=== PATIENT | female | born 1980 | race Caucasian/White ===

== ENCOUNTER 2017-05-31 21:10 | Emergency (ER) | payer OTHER ==
[~2017-05-31] VITALS: Ht 160 cm; Wt 84.4 kg
--- NOTE | ~2017-05-31 | CR72 ---
[facility]. [facility] A Service of [facility] & [facility] RADIOLOGY TEXT RESULTS PATIENT: ALVARO WALSH LOCATION: SED : 78 UNIT #: [id number] AGE: [address]: Love Lopez SEX: F ORDER DR: [id number] [address] [address] [id number] E MR#: [id number] Acc #: [id number] NAME: ALVARO WALSH : 1980 SEX: F STUDY DATE/TIME: 05/31/2017 UNIT: SED ROOM: STUDY DESCRIPTION: CR Chest Single View Portable Attending Physician: Love Lopez Pa-C Ordering Physician: Physician Non-Staff Primary Care Physician: Shavon Dougherty M.D. MEDICAL IMAGING REPORT This report is preliminary unless electronic signature is present. EXAM Portable chest 05/31 at 22:03 INDICATIONS Productive cough and shortness of air for 1 week. COMPARISON. See 07/08/2015 FINDINGS A single AP portable view of the chest shows both lungs to be clear. The heart is normal in size. The mediastinal contour is normal. No significant bone abnormalities are seen. IMPRESSION Normal portable chest. Dictated by... Hamilton Zhou Jr., M.D. THIS IS AN ELECTRONICALLY VERIFIED REPORT Hamilton Zhou Jr., M.D. at 06/01/2017 9:09 PM ADELSO/dagoberto TD: 06/01/2017 09:51 JOB #: [id number] MEDICAL IMAGING REPORT Page 1 of 1
[~2017-05-31 21:10] MED LIST: ACETAMINOPHEN PO; ADVAIR 100-501 EACH IH; ALBUTEROL 0.5ML INH; ALBUTEROL0.83 MG/ML; ALBUTEROL1.25 MG/3 IH; ALBUTEROL17 G1 INH; ALBUTEROL17 GM; ALBUTEROL17 GM INH; ANTIBIOTIC PO; ATARAX PO; AUGMENTIN875 M1 PO; BACTRIM DS TABL1 TA1 PO; BENZONATATE PO; BUSPAR5 MG; DECADRON PO; DICLOFENAC PO; DOXYCYCLINE PO; FLEXERIL PO; FLEXERIL10 MG PO; GUAIFENESI1 TAB.SR . PO; IBUPROFEN PO; KLONOPIN PO; KLONOPIN0.5 M1; LITHIUM CARBON450 MG PO; LITHIUM PO; MEDROL PO; MEDROL4 MG/DOSE- PO; METHADONE PO; METHADOSE10 MG PO; NEURONTIN; NEURONTIN PO; NEURONTIN800 MG PO; PERCOCET10; PREDNISONE PO; SOMA PO; SOMA250 MG PO; ULTRAM PO; VIBRAMYCIN100 M1 PO; VICODIN 5/1 TAB 5/50 PO; VOLTAREN75 MG PO; ZANAFLEX; ZANAFLEX PO; ZANTAC PO; ZITHROMAX PO; [UNRECOGNIZED DRUG - OTHER]; [UNRECOGNIZED DRUG - REMARK]
== END 2017-05-31 23:10 | disposition home or self-care (01) ==
LOC: SED 21:10
DX: J40 Bronchitis, not specified as acute or chronic (principal); F17.200 Nicotine dependence, unspecified, uncomplicated
CPT/HCPCS: 71010; 99285

== ENCOUNTER 2017-07-11 04:31 | Emergency (ER) | payer OTHER ==
[~2017-07-11] VITALS: Ht 160 cm; Wt 84.4 kg
--- NOTE | ~2017-07-11 | CR63 ---
[facility] A Service of [facility] & [facility] RADIOLOGY TEXT RESULTS PATIENT: ALVARO WALSH LOCATION: SED : [birth year] UNIT #: [id number] AGE: [address]: Juan Vidal MD SEX: F ORDER DR: [id number] [place] [address] [id number] E MR#: [id number] Acc #: [id number] NAME: ALVARO WALSH : 1980 SEX: F STUDY DATE/TIME: 07/11/2017 5:01 UNIT: SED ROOM: STUDY DESCRIPTION: CR Chest 2 View Attending Physician: Juan Vidal M.D. Ordering Physician: Juan Vidal M.D. Primary Care Physician: Cady Boss M.D. MEDICAL IMAGING REPORT This report is preliminary unless electronic signature is present. EXAM Two-view chest INDICATIONS Cough and chest congestion for the past 2 days. PROCEDURE Frontal and lateral views of the chest COMPARISON 05/31/2017 FINDINGS Heart size is normal. No dense consolidation pleural fluid or pneumothorax. IMPRESSION No active process. Dictated by... Ramses Ring M.D. THIS IS AN ELECTRONICALLY VERIFIED REPORT Ramses Ring M.D. at 07/11/2017 10:03 PM KERON/varsha TD: 07/11/2017 21:11 JOB #: [id number] MEDICAL IMAGING REPORT Page 1 of 1
== END 2017-07-11 05:37 | disposition home or self-care (01) ==
LOC: SED 04:31
DX: J06.9 Acute upper respiratory infection, unspecified (principal); Z88.1 Allergy status to other antibiotic agents
CPT/HCPCS: 71020; 87651; 99283